=== PATIENT | male | born 1940 | race Caucasian/White ===

== ENCOUNTER 2017-10-19 07:42 | Emergency (ER) | payer OTHER ==
[2017-10-19 07:47] VITALS: RESP 18; TEMP 98.2
--- NOTE | 2017-10-19 08:11 | EDPHY ---
H & P Stated Complaint: Difficulty urinating;poss blood clot in bladder; hematuria Time Seen by Provider: 10/19/17 07:53 Source: Patient Exam Limitations: No limitations - Personal History Current Tetanus Diphtheria and Acellular Pertussis (TDAP): Yes - Medical/Surgical History Hx Asthma: No Hx Chronic Respiratory Disease: No Hx Diabetes: No Hx Cardiac Disease: No Hx Renal Disease: No Hx Cirrhosis: No Hx Alcoholism: No Hx HIV/AIDS: No Hx Splenectomy or Spleen Trauma: No Other PMH: enlarged prostate with green laser surgery - Social History Smoking Status: Former smoker Constitutional: Initial Vital Signs Temperature (C) 36.8 C 10/19/17 07:43 Heart Rate 108 H 10/19/17 07:43 Respiratory Rate 18 10/19/17 07:43 Blood Pressure 148/80 H 10/19/17 07:43 O2 Sat (%) 97 10/19/17 07:43 Allergies/Adverse Reactions: ciprofloxacin [From Cipro] Allergy (Verified 10/19/17 07:43) ciprofloxacin HCl [From Cipro] Allergy (Verified 10/19/17 07:43) Home Medications: Medication Instructions Recorded UROCIT-K 08/27/09 ALPRAZolam [Xanax 0.5mg] PRN PRN 08/08/11 Acyclovir [Zovirax 200 mg] 200 mg PO 5XD 08/08/11 Phenazopyridine HCl [Pyridium] 200 mg PO TID #6 tab 10/19/17 Sulfamethox/Tmp 800/160 mg 1 tab PO BID #14 tab 10/19/17 [Bactrim Ds] Medical Decision Making ED Course/Re-evaluation: CHIEF COMPLAINT: Hematuria HISTORY OF PRESENT ILLNESS: Sharif is a 77-year-old male presenting with hematuria and urinary urgency. The patient has a superficial clotting issue from a previous procedure. He has experienced similar episodes of urine in his blood before but this time he has associated urinary urgency. 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 He had a cystogram in the past and is followed closely by his urologist Dr. Luna. REVIEW OF SYSTEMS: A 10 point review of systems was performed and is negative with the exception of the elements mentioned in the history of present illness. PHYSICAL EXAM: HR, BP, O2 Sat, RR. Temp noted General Appearance: Alert, well hydrated, appropriate, and non-toxic appearing. Head: Atraumatic without scalp tenderness or obvious injury Eyes: Pupils equal, round, reactive to light and accommodation, EOMI, no trauma , no injection. Ears: Clear bilaterally, no perforation, normal landmarks Nose: Atraumatic, no rhinorrhea, clear. Throat: There is no erythema or exudates, no lesions, normal tonsils, mucus membranes moist. Neck: Supple, 2+ carotid upstroke, nontender, no lymphadenopathy. Respiratory: No retractions, no distress, no wheezes, and no accessory muscle use. Lungs are clear to auscultation bilaterally. Cardiovascular: Regular rate and rhythm, no murmurs, rubs, or gallops. Bilateral carotid, radial, dorsalis pedis, and posterior tibial pulses intact. Good capillary refill all extremities. Gastrointestinal: Abdomen is soft, nontender, non-distended, no masses, no rebound, no guarding, no peritoneal signs. Musculoskeletal: Normal active ROM of all extremities, atraumatic. Neurological: Alert, appropriate, and interactive. The patient has normal DTRs and non-focal cranial nerves, motor, sensory, and cerebellar exam. Skin: No rashes, good turgor, no nodules on palpation. Past medical history: Prostate procedure Family history: Noncontributory Social history: Urologist: Dr. Luna. PCP: Saad Guzman. Retired, non- smoker. Denies drug or alcohol use. DIFFERENTIAL DIAGNOSIS: Differential diagnosis includes but is not limited to hematuria, urinary tract infection, kidney stone. MEDICAL DECISION MAKING: The patient presents with hematuria. His urine shows a large amount of blood. Plan to irrigate with catheter to see if we can clear the urine. The patient has a superficial clotting issue from a previous procedure, he states that placing a catheter can often cause more bleeding. A Valencia catheter was placed by nursing staff. The patient has gross hematuria. I think it would be best to leave the catheter in since there is still clots. The patient does not wish to leave it in. I will send him home with Bactrim ( per his request) because we instrumented his bladder. The patient is able to urinate freely on his own without significant post-void residual. Departure - Departure Disposition: Home, Routine, Self-Care Clinical Impression: Hematuria Qualifiers: Hematuria type: gross Qualified Code(s): R31.0 - Gross hematuria Condition: Good Instructions: Valencia Catheter Placement and Care (ED), Hematuria (ED) Additional Instructions: Take Bactrim as directed. Follow up with your urologist next week as needed. Return with new or worsening symptoms. Referrals: Tim Conn MD [Primary Care Provider] - As per Instructions Gonzalez Luna [Other] - As per Instructions Prescriptions: Phenazopyridine HCl [Pyridium] 200 mg PO TID #6 tab Sulfamethox/Tmp 800/160 mg [Bactrim Ds] 1 tab PO BID #14 tab Report Scribed for: Kwesi Hernandez Report Scribed by: Lidia Farley Date of Report: 10/19/17 Time of Report: 08:53
[2017-10-19 09:51] VITALS: BP 141/89; PULSE 87; O2SAT 94
== END 2017-10-19 09:51 | disposition home or self-care (01) ==
PROC: 0T9B70Z Drainage of Bladder with Drainage Device, Via Natural or Artificial Opening (ICD-10-PCS; principal; 2017-10-19)
DX: R31.0 Gross hematuria (principal); Z87.891 Personal history of nicotine dependence

== ENCOUNTER → 2018-02-13 | Outpatient (CLI) | payer OTHER | LOC: FIMAGING 13:51 | PROVIDERS: ATTEND Physician Assistant Medical | DX: M25.562 Pain in left knee (principal) ==

== ENCOUNTER → 2019-01-11 | Outpatient (CLI) | payer OTHER, MEDICARE ==
[~2019-01-11] MED LIST: IOPAMIDOL (ISOVUE-300) 100 ML BTL ONE
== END ==
LOC: FIMAGING 09:13
PROVIDERS: ATTEND Urology
DX: R31.0 Gross hematuria (principal); K86.2 Cyst of pancreas; N28.1 Cyst of kidney, acquired; N40.1 Benign prostatic hyperplasia with lower urinary tract symptoms; K57.30 Diverticulosis of large intestine without perforation or abscess without bleeding
CPT/HCPCS: 74178; Q9967